=== PATIENT | female | born 1980 | race African-American/Black ===

== ENCOUNTER 2019-09-05 23:16 | Emergency (ER) | payer OTHER ==
[~2019-09-05] VITALS: Ht 180.3 cm; Wt 108.0 kg
[2019-09-06] MEDS ORDERED: DexAMETHasone 4 MG TAB PO ONE (07:30)
[2019-09-06 10:52] VITALS: BP 137/82
== END 2019-09-06 10:53 | disposition home or self-care (01) ==
LOC: ER 23:23
DX: T54.91XA Toxic effect of unspecified corrosive substance, accidental (unintentional), initial encounter (principal); J04.0 Acute laryngitis; J02.9 Acute pharyngitis, unspecified; M54.2 Cervicalgia; Z86.718 Personal history of other venous thrombosis and embolism; Y92.89 Other specified places as the place of occurrence of the external cause
CPT/HCPCS: 70490; 71250; 99284; J8540